=== PATIENT | female | born 1970 | race American Indian/Alaskan Native ===

== ENCOUNTER 2019-12-22 03:16 | Emergency (ER) | payer SELFPAY ==
[2019-12-22 04:02] VITALS: BP 142/89
== END 2019-12-22 04:02 | disposition left against medical advice (07) ==
LOC: ED 03:16
DX: G43.909 Migraine, unspecified, not intractable, without status migrainosus (principal); Z53.21 Procedure and treatment not carried out due to patient leaving prior to being seen by health care provider